=== PATIENT | female | born 1965 | race Caucasian/White ===

== ENCOUNTER → 2020-01-21 | Outpatient (CLI) | payer MEDICARE ==
[~2020-01-21] MED LIST: BPR75T PO; CATHETER FLUSH 10 ML SYR IV PRN; FLUO40CA12 PO; HOLD METFORMIN - RECEIVED CONTRAST 20 ML VIAL IV SCH; IOHEXOL 350 MG/ML 100 ML (OMNIPAQUE 350) VIAL IV ONE; NS 100 ML (IVPB) BAG IV ONE; OXYC10TA63 PO; PNT40TEC PO; ROPI0.5T PO
[2020-01-21 10:07] LABS: BUN/CREATININE RATIO 20; CREATININE SERUM 0.76 MG/DL (0.60-1.30); GFR ESTIMATED > 60
--- NOTE | 2020-01-21 11:44 | Diagnostic Imaging Report ---
CLINICAL INDICATION: Patient has neck pain for six months and not getting any better. EXAM: Axial CT scan of the neck soft tissues performed with 50 cc of Omnipaque 350 IV contrast. Coronal and sagittal reformatted images were created. Auto Exposure Controls were utilized during the CT exam to meet ALARA standards for radiation dose reduction. Of note, there is diminished IV contrast opacification due to small-caliber IV access with difficult administration. COMPARISON: None. FINDINGS: The nasopharynx, oropharynx, hypopharynx, and laryngeal soft tissue structures are unremarkable with no mass. Tonsilliths are noted. Salivary glands are unremarkable. Thyroid gland is unremarkable. Bilateral neck lymph nodes seen which do not appear significantly pathologic. There is no neck soft tissue fluid collection or fat stranding. Visualized upper lung espinosa are clear. Limited visualization of the intracranial structures is unremarkable. Orbits and globes are unremarkable. There is minimal mucosal thickening involving both maxillary sinuses. Mastoid air cells are clear. There is cervical spine degenerative disease with suggestion of diffuse disc bulge at the C5-C6 and C6-C7 levels with mild loss of intervertebral disc height. There are mildly hypertrophic anterior and posterior disc spurs at C5-C6 and C6-C7 levels. There is [id number] right C4-C5 neuroforamen narrowing, moderate bilateral C5-C6 neuroforamen narrowing due to uncinate spurs. There is grade 1 anterolisthesis of C4 on C5. IMPRESSION: 1: There is cervical spine degenerative disease which is most pronounced at the C4 through C6 levels, as described above. 2: Otherwise, there is no neck soft tissue mass or significant abnormality for patient's age. Dictated by: Dictated on workstation # [id number]
== END ==
LOC: RAD FS 09:14
PROVIDERS: ATTEND Otolaryngology Otolaryngology/Facial Plastic Surgery
DX: M50.323 Other cervical disc degeneration at C6-C7 level (principal); F17.290 Nicotine dependence, other tobacco product, uncomplicated
CPT/HCPCS: 36415; 70491; 82565; 84520

== ENCOUNTER 2020-07-15 17:18 | Emergency (ER) | payer MEDICARE ==
[~2020-07-15] VITALS: Ht 172 cm; Wt 95.0 kg
[~2020-07-15 17:18] MED LIST changes: -CATHETER FLUSH 10 ML SYR IV PRN; -HOLD METFORMIN - RECEIVED CONTRAST 20 ML VIAL IV SCH; -IOHEXOL 350 MG/ML 100 ML (OMNIPAQUE 350) VIAL IV ONE; -NS 100 ML (IVPB) BAG IV ONE
[2020-07-15] MEDS ORDERED: SUMAtriptan 6 MG/0.5 ML (IMITREX) INJ SQ ONE (17:30)
[2020-07-15] MEDS ORDERED: NS IV 1000 ML 1,000 ML IV SCH (17:30)
[2020-07-15] MEDS ORDERED: METOCLOPRAMIDE INJ 10 MG/2 ML (REGLAN) IVP ONE (17:30)
[2020-07-15] MEDS ORDERED: KETOROLAC 30 MG/ML VIAL IVP ONE (17:30)
--- NOTE | 2020-07-15 17:34 | ED Headache ---
General Chief Complaint: Head/Cervical Problems Stated Complaint: MIGRAINE,NAUSEA Source: patient Exam Limitations: no limitations (SHAWNA AMBRIZ DO) History of Present Illness Date Seen by Provider: Jul 15, 2020 Time Seen by Provider: 17:22 Initial Comments The patient is a pleasant 55-year-old female who presents for evaluation of a migraine headache which started earlier today. She does have a history of migraine headaches and states that the last time she came to the hospital for a migraine was probably 18 months ago or so. She tried to take Excedrin Migraine which were normally help did not do very much for her. She denies any recent trauma, fevers or chills, changes, focal weakness or numbness, confusion, difficulty speaking or walking, or any red flags for serious headache etiology. The pain is frontal and described as pressure-like. This is similar to previous migraines. She is alert and oriented 4, calm, and appears to be in no distress at this time. Timing/Duration: 4-6 hours Severity/Quality: moderate Location: frontal Prior Headaches/Recent Trauma: chronic headaches Modifying Factors: improves with exposure to light Associated Symptoms: denies symptoms; No confusion, No fever/chills, No loss of consciousness, No numbness in legs/feet, No stiff neck, No vision changes, No weakness (SHAWNA AMBRIZ DO) Allergies and Home Medications Allergies Coded Allergies: sumatriptan (Verified Allergy, Severe, 07/15/20) diphenhydramine HCl (Unverified Allergy, Unknown, 02/12/12) prochlorperazine edisylate (Unverified Allergy, Unknown, 02/12/12) prochlorperazine maleate (Unverified Allergy, Unknown, 02/12/12) propoxyphene napsylate (Unverified Allergy, Unknown, 02/12/12) acetaminophen (Unverified Adverse Reaction, Unknown, 02/12/12) morphine (Unverified Adverse Reaction, Unknown, 02/12/12) oxycodone HCl (Unverified Adverse Reaction, Unknown, 02/12/12) Home Medications Bupropion Hcl 75 Mg Tablet, 1 TAB PO DAILY, (Reported) Fluoxetine Hcl 40 Mg Capsule, 1 EACH PO DAILY, (Reported) Pantoprazole Sodium 40 Mg Tablet.dr, 1 TAB PO DAILY, (Reported) Ropinirole Hcl 0.5 Mg Tablet, 0.5 MG PO PRN, (Reported) Patient Home Medication List Home Medication List Reviewed: Yes (SHAWNA AMBRIZ DO) Review of Systems Review of Systems Constitutional: no symptoms reported Eyes: No Symptoms Reported Ears, Nose, Mouth, Throat: no symptoms reported Respiratory: no symptoms reported Cardiovascular: no symptoms reported Gastrointestinal: no symptoms reported Genitourinary: no symptoms reported Musculoskeletal: no symptoms reported Skin: no symptoms reported Psychiatric/Neurological: Headache (SHAWNA AMBRIZ DO) All Other Systems Reviewed Negative Unless Noted: Yes (SHAWNA AMBRIZ DO) Past Qdbobsr-Ysnxhw-Awxddu Hx Past Med/Social Hx: Reviewed Nursing Past Med/Soc Hx (SHAWNA AMBRIZ DO) Patient Social History Alcohol Use: Denies Use Recreational Drug Use: No Smoking Status: Current Everyday Smoker Type Used: Cigarettes Recent Foreign Travel: No Contact w/Someone Who Travel: No Physical Abuse: No Sexual Abuse: No Mistreated: No Fear: No (SHAWNA AMBRIZ DO) Physical Exam Vital Signs Vital Signs - First Documented 07/15/20 17:30 Temp 37.0 Pulse 88 Resp 16 B/P (MAP) 134/59 (84) Pulse Ox 99 O2 Delivery Room Air (STORMY MANDEL DO) Vital Signs Capillary Refill : (SHAWNA AMBRIZ DO) Height, Weight, BMI Height: '" Weight: lbs. oz. kg; BMI Method: General Appearance: WD/WN, no apparent distress HEENT: PERRL/EOMI, normal ENT inspection Neck: non-tender, full range of motion, supple, normal inspection Cardiovascular: normal peripheral pulses, regular rate, rhythm, no edema, no murmur Respiratory: normal breath sounds, no respiratory distress, no accessory muscle use Extremities: normal range of motion, no pedal edema Psychiatric: alert, oriented x 3 Crainal Nerves: normal hearing, normal speech, PERRL Coordination/Gait: normal gait Motor/Sensory: no motor deficit, no sensory deficit Skin: normal color, warm/dry (SHAWNA AMBRIZ DO) Progress/Results/Core Measures Results/Orders Medications Given in ED Current Medications Medications Dose Ordered Sig/Ivelisse Route Start Time Stop Time Status Last Admin Dose Admin Fentanyl Citrate 50 mcg ONCE ONCE IVP 07/15/20 18:00 07/15/20 18:01 DC 07/15/20 18:01 50 MCG Ketorolac Tromethamine 30 mg ONCE ONCE IVP 07/15/20 17:30 07/15/20 17:31 DC 07/15/20 17:49 30 MG Metoclopramide HCl 10 mg ONCE ONCE IVP 07/15/20 17:30 07/15/20 17:31 DC 07/15/20 17:49 10 MG (STORMY MANDEL DO) Vital Signs/I&O 07/15/20 17:30 Temp 37.0 Pulse 88 Resp 16 B/P (MAP) 134/59 (84) Pulse Ox 99 O2 Delivery Room Air (STORMY MANDEL DO) Progress Progress Note : Progress Note @1800 - Pt care transferred to Dr. Mandel at this time. Awaiting patient's response to medical treatment. (SHAWNA AMBRIZ DO) Departure Communication (Admissions) History and physical exam reviewed by this provider. Agree with the previous assessment. Patient is neurologically intact and reports typical migraine headache with significant improvement of symptoms in the emergency department. No additional imaging or workup indicated at this time. Patient will be discharged home at her request. With instructions to follow up with PCP for further management. Return precautions reviewed (STORMY MANDEL DO) Impression Primary Impression: Migraine Disposition: 01 HOME, SELF-CARE Condition: Stable Departure-Patient Inst. Decision time for Depature: 18:33 (STORMY MANDEL DO) Referrals: STALIN MISTRY MD (PCP) Primary Care Physician Patient Instructions: Migraine Headache (DC) Add. Discharge Instructions: Follow-up with your doctor in the next 2-3 days. Drink plenty of fluids. Try to limit screen time, bright lights, and loud noises. Take Tylenol or ibuprofen at home as needed. Return to the Emergency Department immediately for new or worsening symptoms. SHAWNA AMBRIZ DO Jul 15, 2020 17:34 STORMY MANDEL DO Jul 15, 2020 18:33
[2020-07-15] MEDS ORDERED: fentaNYL INJECTION 100 MCG/2 ML AMP IVP ONE (18:00)
[2020-07-15 18:34] VITALS: BP 122/68
== END 2020-07-15 18:35 | disposition home or self-care (01) ==
LOC: EDUNIT# 17:18 → ER FS 17:19
DX: G43.909 Migraine, unspecified, not intractable, without status migrainosus (principal); F17.210 Nicotine dependence, cigarettes, uncomplicated; Z88.8 Allergy status to other drugs, medicaments and biological substances; Z88.5 Allergy status to narcotic agent; Z88.6 Allergy status to analgesic agent

== ENCOUNTER 2020-12-01 17:11 | Emergency (ER) | payer MEDICARE, MEDICAID ==
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
[2020-12-01] MEDS ORDERED: ONDANSETRON 4 MG/2 ML (SDV) Z0FRAN IVP ONE ×2 (17:30→19:00)
[2020-12-01] MEDS ORDERED: fentaNYL INJECTION 100 MCG/2 ML AMP IVP ONE (17:30)
[2020-12-01] MEDS ORDERED: HYDROmorphone 2 MG/ML VIAL (DILAUDID) ONE (17:54)
[2020-12-01] MEDS ORDERED: HYDROmorphone 2 MG/ML VIAL (DILAUDID) IV ONE (18:00)
--- NOTE | 2020-12-01 18:02 | Diagnostic Imaging Report ---
INDICATION: Sledding accident. EXAMINATION: Left tibia and fibula, 12/01/2020. FINDINGS: 3 views of the tibia and fibula. There is a comminuted fracture of the distal tibia which extends into the ankle joint. This appears nondisplaced. Vague lucency is seen along the fibular head suspicious for a fracture as well. There is no dislocation. IMPRESSION: 1. Comminuted intra-articular fracture of the distal tibia. 2. Fibular head fracture. Dictated by: Dictated on workstation # [id number]
[2020-12-01] MEDS ORDERED: OXYC10TA85 PO (18:21)
[2020-12-01] MEDS ORDERED: ONDA4TAB11 PO (18:21)
[2020-12-01] MEDS ORDERED: HYDROmorphone 2 MG/ML VIAL (DILAUDID) IVP ONE (19:00)
[2020-12-01 19:07] VITALS: BP 127/48
== END 2020-12-01 19:08 | disposition home or self-care (01) ==
LOC: EDUNIT# 17:11 → ER FS 17:12
DX: S82.392A Other fracture of lower end of left tibia, initial encounter for closed fracture (principal); S82.455A Nondisplaced comminuted fracture of shaft of left fibula, initial encounter for closed fracture; Z88.5 Allergy status to narcotic agent; Z88.6 Allergy status to analgesic agent; Z88.8 Allergy status to other drugs, medicaments and biological substances; V00.221A Fall from sled, initial encounter
CPT/HCPCS: 29505; 73590

== ENCOUNTER → 2021-03-11 | Outpatient (CLI) | payer MEDICARE, MEDICAID ==
[~2021-03-11] MED LIST changes: +ONDA4TAB11 PO; +OXYC10TA85 PO
[2021-03-11 14:41] LABS: ALANINE AMINOTRANSFERASE 31 U/L (0-55); ALKALINE PHOSPHATASE 123 U/L (40-136); BILIRUBIN,TOTAL 0.2 MG/DL (0.1-1.0); BUN/CREATININE RATIO 17; CALCIUM 9.4 MG/DL (8.5-10.1); CARBON DIOXIDE 27 MMOL/L (21-32); CHLORIDE 105 MMOL/L (98-107); CREATININE SERUM 0.71 MG/DL (0.60-1.30); GFR ESTIMATED > 60; GLUCOSE 98 MG/DL (70-105); POTASSIUM 4.5 MMOL/L (3.6-5.0); SODIUM 140 MMOL/L (135-145)
[2021-03-11 14:42] LABS: ALBUMIN 4.3 GM/DL (3.2-4.5)
== END ==
LOC: LAB FS 12:48
PROVIDERS: ATTEND Family Medicine
DX: R10.9 Unspecified abdominal pain (principal)
CPT/HCPCS: 36415; 80053

== ENCOUNTER → 2021-03-14 | Outpatient (CLI) | payer MEDICARE, MEDICAID ==
[~2021-03-14] MED LIST changes: +CATHETER FLUSH 10 ML SYR IV PRN; +DIATRIZOATE MEGLUM/SODIUM 37% 120 ML (GASTROGRAFIN) RC ONE; +HOLD METFORMIN - RECEIVED CONTRAST 20 ML VIAL IV SCH; +IOHEXOL 350 MG/ML 100 ML (OMNIPAQUE 350) VIAL IV ONE; +NS 100 ML (IVPB) BAG IV ONE
--- NOTE | 2021-03-14 10:48 | Diagnostic Imaging Report ---
EXAMINATION: CT abdomen and pelvis with intravenous contrast. TECHNIQUE: Multiple contiguous axial images were obtained through the abdomen and pelvis after the uneventful administration of intravenous contrast. All CT scans use one or more of the following dose optimizing techniques: automated exposure control, MA and/or KvP adjustment based on patient size and exam type or iterative reconstruction. HISTORY: Abdominal pain. COMPARISON: None available. FINDINGS: Limited views of the lower thorax are unremarkable. The liver is normal without focal lesion. There is no biliary ductal dilation. Gallbladder is not seen. Pancreas is normal. Spleen is normal. Adrenal glands are normal. The kidneys are normal. There is no hydronephrosis. Urinary bladder is normal. Visualized bowel is normal in caliber without obstruction or inflammation. No free fluid or air. No abdominal or pelvic lymphadenopathy. Aorta is normal in caliber without aneurysm. There are no suspicious osseus lesions. IMPRESSION: No acute abnormality in the abdomen or pelvis. Dictated by: Dictated on workstation # [id number]
== END ==
LOC: RAD FS 08:04
PROVIDERS: ATTEND Family Medicine
DX: R10.9 Unspecified abdominal pain (principal)
CPT/HCPCS: 74177